=== PATIENT | female | born 1995 | race Caucasian/White ===

== ENCOUNTER 2018-02-02 05:48 | Day surgery (SDC) | payer OTHER ==
[2018-02-02] MEDS ORDERED: ceFAZolin 2 GM/50 ML 2 GM/50 ML BAG IV ONE (06:23)
[2018-02-02 06:48] LABS: HCG UR QUAL NEGATIVE
[2018-02-02] MEDS ORDERED: LACTATED RINGERS 1,000 ML IV ONE ×2 (06:50→08:59)
--- NOTE | 2018-02-02 06:51 | ANESTHESIA ---
Pre-Anesthesia VS, & Labs - Diagnosis Right ACL tear - Procedure Right ACL repair, arthroscopic Vital Signs: Temp Pulse Resp BP Pulse Ox 36.7 C 81 18 117/78 100 02/02/18 06:35 02/02/18 06:35 02/02/18 06:35 02/02/18 06:35 02/02/18 06:35 Height 5 ft 6 in Weight (kg) 68.04 kg - NPO >8 hours - Is Patient ?: No - Lab Results Lab results reviewed: No Home Medications and Allergies Home Medications: Ambulatory Orders Biotin 300 mcg PO 01/23/18 [place]-3/Dha/Epa/Fish Oil [Fish Oil 1,000 mg Softgel] 1 each PO 01/23/18 Pnv95/Ferrous Fumarate/FA [ Formula] 1 each PO 01/23/18 Biotin 300 mcg PO 01/23/18 [place]-3/Dha/Epa/Fish Oil [Fish Oil 1,000 mg Softgel] 1 each PO 01/23/18 Pnv95/Ferrous Fumarate/FA [ Formula] 1 each PO 01/23/18 Allergies/Adverse Reactions: Allergies Allergy/AdvReac Type Severity Reaction Status Date / Time No Known Drug Allergies Allergy Verified 01/23/18 12:45 Anes History & Medical History - Anesthetic History Anesthesia Complications: reports: No previous complications Family history of Anesthesia Complications: Denies Family history of Malignant Hyperthermia: Denies - Medical History Cardiovascular: reports: None, Other (thoracic outlet syndrome) Pulmonary: reports: None Gastrointestinal: reports: None Urinary: reports: None Neuro: reports: Headaches Musculoskeletal: reports: Other Endocrine/Autoimmune: reports: None Blood Disorders: reports: None Skin: reports: None Smoking Status: Current every day smoker - Surgical History Cardiothoracic: Other (Thoracic outlet syndrome) Orthopedic: Other Exam General: Alert Dental: WNL Mouth Opening: Greater than 4 Fingerbreadths Neck Mobility: Normal Mallampati classification: I Thyromental Distance: greater than 6 cm Respiratory: Lungs clear Cardiovascular: Regular rate Neurological: Normal speech Mental/Cognitive Status: Alert/Oriented X3 Cognitive Status: Within normal limits Plan Anesthesia Type: General Consent for Procedure(s) Verified and Reviewed: Yes Code Status: Attempt Resuscitation ASA classification: 2-Mild systemic disease Is this case an emergency?: Yes
[2018-02-02] MEDS ORDERED: BUPIVACAINE 0.25% PF 30 ML VIAL ONE (06:52)
[2018-02-02] MEDS ORDERED: EPINEPHrine 1 MG/ML AMP ONE (06:53)
[2018-02-02] MEDS ORDERED: EPINEPHrine 1 MG/ML AMP IR ONE (08:08)
[2018-02-02] MEDS ORDERED: BUPIVACAINE 0.25% PF 30 ML VIAL SUBQ ONE (08:10)
[2018-02-02] MEDS ORDERED: KETOROLAC 30 MG/ML VIAL IVP ONE (08:50)
[2018-02-02] MEDS ORDERED: PROPOFOL 200 MG/20 ML VIAL IVP ONE (08:50)
[2018-02-02] MEDS ORDERED: HYDROmorphone 1 MG/ML SYRINGE IVP ONE (08:50)
[2018-02-02] MEDS ORDERED: fentaNYL 100 MCG/2 ML VIAL IVP ONE (08:50)
[2018-02-02] MEDS ORDERED: MIDAZOLAM 2 MG/2 ML VIAL IVP ONE (08:50)
[2018-02-02] MEDS ORDERED: DEXAMETHASONE 4 MG/ML VIAL IVP ONE (08:50)
[2018-02-02] MEDS ORDERED: ONDANSETRON 4 MG/2 ML VIAL IVP ONE (08:50)
[2018-02-02] MEDS ORDERED: ACETAMINOPHEN 1,000 MG/100 ML 100 ML IV ONE (08:50)
[2018-02-02] MEDS ORDERED: HYDROcod/ACETAM 5/325 MG TABLET PO PRN (11:20)
[2018-02-02] MEDS ORDERED: ONDANSETRON 4 MG/2 ML VIAL IVP PRN (11:20)
[2018-02-02] MEDS ORDERED: HYDROmorphone 0.5 MG/0.5 ML SYRINGE IVP PRN (11:20)
--- NOTE | 2018-02-02 11:27 | IMMEDIATE POSTOPERATIVE NOTE ---
Immediate Postoperative Note - Procedure Note Procedure Date: 02/02/18 Pre-Op Diagnosis: Right ACL tear and medial meniscal tear Procedure: Right arthroscopic assisted ACL reconstruction and medial meniscal repair Post-Op Diagnosis: Right ACL tear and medial meniscal tear Primary Surgeon: Parish Delgadillo MD Medical Insurance Coder: Ced Gorman MD Anesthesia Type: General LMA Findings: Torn ACL and repairable peripheral meniscal tear Complications: No complications Estimated Blood Loss (in cc): 25 Plan of Care: Discharge fro [facility] when criteria met. NWB with knee locked in extension.
--- NOTE | 2018-02-02 13:14 | OPERATIVE REPORT ---
Operative Report - General Planned Procedure: Right ACL reconstruction w BTB auto, medial meniscal repair v debridement Pre-Op Diagnosis: Right ACL tear, medial meniscal tear Procedure Performed: Right ACL reconstruction w BTB auto, medial meniscal repair Post Op Diagnosis: Right ACL tear, medial meniscal tear - Procedure Note Primary Surgeon: Parish Delgadillo MD Secondary Surgeon: Ced Gorman MD Anesthesia Technique: General LMA Estimated Blood Loss (mL): 25 - Other Other Information/Narrative: Examination under anesthesia: Extension 0, flexion 135, Alok IIB, pivot shift positive, stable to varus and valgus stress at 0 and 30, negative posterior drawer. Arthroscopic findings: 1. Patella and trochlea: Normal 2. Medial compartment: Peripheral meniscal tear posterior horn and body. Chondral surfaces normal 3. Lateral compartment: Normal 4. ACL Torn, scarred to PCL and roof of notch. PCL intact. Implants: Femur: Arthrex BTB tight rope Tibia: Arthrex 9 x 20 mm metal interference screw Tourniquet: Left thigh 250 mmHg, approximately 130 minutes Procedure Details: The patient was met in the preoperative hold area. We reviewed the risks benefits and alternatives to surgery. Consent was reviewed. All questions were answered. The patient confirmed the surgical site as the right knee. The patient then met with anesthesia and was brought back to the operating room. The patient was placed supine on the operating table. A well-padded tourniquet was placed on the thigh. A general anesthetic was induced and an LMA was placed. An examination under anesthesia was performed knee with the above- stated findings. The knee was then prepped and draped in the usual sterile fashion. A surgical timeout was then performed. The correct patient, correct procedure, and the correct surgical site were confirmed by everyone in the room. Perioperative antibiotics had been delivered. Following timeout and administration of antibiotics the Esmarch was used to exsanguinate the lower extremity and the tourniquet was raised to 250 mmHg. A 10 blade was used to make a midline incision over the patellar tendon. Dissection was carried down to the level of the peritenon. The peritenon was incised and medial and lateral flaps of the peritenon raised to expose the entirety of the patellar tendon, the distal patella, and tibial tubercle. A 10- blade was used to harvest the central 10mm of the patella tendon. An oscillating saw and osteotomes were used to harvest a 10 x 25 mm bone plug from the tibial tubercle. An oscillating saw and osteotomes were used to harvest a 10 x 20 mm bone plug from the distal patella. 2 #2 fiber wires were placed anterior to posterior through the patellar bone plug to aid in graft passage and fixation. The graft was taken to the back table and trimmed to fit through a 10 mm tunnel, and the tight rope was placed through the tibial bone plug. The graft was secured on the back table wrapped in moist gauze and stored for later use. An 11 blade scalpel was used to make an anteromedial and anterolateral arthroscopic portal. This was performed underneath the skin flaps from the patellar tendon harvest. The arthroscope was introduced into the knee and a diagnostic arthroscopy was performed with the above-stated findings. A medial meniscal tear was identified, consistent with the pre-op MRI in the posterior horn of the medial meniscus tracking towards the body. This was probed and found to have approx 9mm of meniscal tissue to the free edge. The meniscal tissue otherwise appeared healthy, and the decision was made to repair the meniscus. The meniscus was prepared with a ball-rasp and then two Fastfix 360 meniscal repair devices were sequentially introduced, starting posterior and close to the root and moving anterior for a total of 2 mattress sutures. The meniscus was probed and found to be stable, with good approximation of the tissue. A soft tissue notchplasty was performed with a combination of the arthroscopic sucker shaver and wand. The Arthrex flip cutter guide was set to 105 and plac ed onto the [place] femoral footprint of the ACL. A small stab incision was made on the distal lateral thigh to accommodate the flip cutter trocar. The trocar was placed on the lateral femoral condyle. The flip cutter was drilled through the trocar and into the intra-articular notch. The fit flip cutter blade was engaged and a 10 mm socket was drilled to a depth of 25 mm. A passing suture was placed through the flip cutter guide and the guide instruments were then removed. The tibial tunnel guide was set to 55 and placed on the tibial footprint of the ACL. A guidepin was placed through the trocar, the placement was slightly anterior to ideal, so the parallel guide was used to place a second pin, this was sequentially reamed with 4.5mm, 7mm and 10mm reamer using a juan antonio clamp to move the guidewire to the desired position between each reaming. The final 10mm tunnel ended in the desired anatomic location. The passing suture was retrieved from the joint and brought out through the tibial tunnel to aid in graft passage. The graft was then retrieved from the back table. The graft was passed in a retrograde fashion through the tibial tunnel. The tight rope button was placed onto the lateral femoral cortex with excellent security. The tight rope was then tightened and the patellar bone plug was shuttled up into the femoral socket with excellent fit. Longitudinal traction was used to test fixation, which was solid. The knee was then cycled and placed into full extension and an 9x 20 mm metal cannulated interference screw was placed in the tibia. A Alok was performed and was 1A. The scope was reinserted in the knee and there was no prominent hardware. The tension on the graft was appropriate. There was no notch impingement. The tightrope was checked by re-tightening, followed by alternating half hitches for backup fixation. The excess limbs of suture were then trimmed. The tourniquet was lowered at approx 130 minutes. All wounds were copiously irrigated with normal saline and we began our closure. The excess trimmings of bone were placed back into the patellar and tibial donor sites and the remained of the voids filled with DBX. The peritenon was closed with a running 0 Vicryl suture. The subcutaneous tissues were closed with 0 Vicryl suture. Subcutaneous tissues were closed with 2-0 Vicryl. Skin was closed with a running buried 3-0 Monocryl. The IT band was closed with 0-vicryl and the thigh stab incision was closed with a 3-0 Monocryl. The wounds were then cleaned and dried, and covered with Xeroform. The incisions were infiltrated with 0.25% Marcaine. Sterile cotton gauze was placed over the incisions followed by an ABD and GULSHAN hose. The surgical drapes were removed. The knee was placed into a knee immobilizer. The patient was awoken from anesthesia, extubated, and taken to the PACU for recovery in good condition. Postoperative plan: 1. Discharge home from the same day surgery facility once discharge criteria has been met. 2. Non-weightbearing with knee locked in extension until follow-up 3. Will follow postoperative ACL rehabilitation protocol. Modify for meniscal repair. Anticipate in-line running activities no earlier than 3-4 months postop, cutting and pivoting activities at 6 months postop. 4. Full strength aspirin 30 days for DVT prophylaxis.
[2018-02-02 13:37] VITALS: BP 127/77
--- NOTE | 2018-02-03 10:14 | XRAY Report ---
Reason: s/p R ACL reconstruction Procedure Date: 02/02/2018 Accession Number: [id number] / [id number] Procedure: XR - Knee 2 View RT CPT Code: FULL RESULT: EXAM: RIGHT KNEE RADIOGRAPHY EXAM DATE: 02/02/2018 11:56 AM. CLINICAL HISTORY: Status post right ACL reconstruction. COMPARISON: None. TECHNIQUE: 2 views. FINDINGS: Bones: No acute fracture or bony lesion. Lucency along the proximal right tibia likely due to postoperative changes. Fixation screw in the right tibia and anchor present in the distal lateral right femur seen which are postsurgical. Joints: Changes seen from right ACL reconstruction. Right knee effusion. Soft Tissues: Subcutaneous and intra-articular air likely postoperative. IMPRESSION: 1. Status post right ACL reconstruction. RADIA
== END 2018-02-02 05:49 | disposition home or self-care (01) ==
LOC: SDS 05:48
PROVIDERS: ATTEND Orthopaedic Surgery
PROC: 0LBQ0ZZ Excision of Right Knee Tendon, Open Approach (ICD-10-PCS; 2018-02-02)
PROC: 0SQC4ZZ Repair Right Knee Joint, Percutaneous Endoscopic Approach (ICD-10-PCS; 2018-02-02)
PROC: 0MRN47Z Replacement of Right Knee Bursa and Ligament with Autologous Tissue Substitute, Percutaneous Endoscopic Approach (ICD-10-PCS; principal; 2018-02-02 07:30)
DX: S83.511A Sprain of anterior cruciate ligament of right knee, initial encounter (principal); S83.241A Other tear of medial meniscus, current injury, right knee, initial encounter; F17.210 Nicotine dependence, cigarettes, uncomplicated
CPT/HCPCS: 29882; 29888; 73560; 81025; C1713; J0131; J0690; J1170; J7120